=== PATIENT | male | born 1955 | race Caucasian/White ===

== ENCOUNTER 2016-12-22 07:43 | Day surgery (SDC) | payer BC ==
--- NOTE | ~2016-12-22 | EGD ---
EGD REPORT [facility] [address] [address] NAME: ADAIR THOMASON : 53 STATUS : REG [facility]#: [id number] AGE: 61 ADM/REG DATE : 12/22/16 MR#: [id number] REPORT SERV DATE: 12/22/16 DICTATED BY: ANA LUISA MCKENZIE DATE: 12/22/16 REPORT STATUS : Draft TRANS[facility]IBED BY: [facility] DATE: 12/22/16 Endoscopy Center Patient Name: Adair Thomason Date of : 1955 Attending MD: ANA LUISA MCKENZIE MD Procedure Date No Time: 12/22/2016 Procedure: Colonoscopy Indications: Colon cancer screening in patient at increased risk: Family history of colon polyps Referring MD: Jerri Anthony Medicines: Monitored Anesthesia Care Complications: No immediate complications. Procedure: Pre-Anesthesia Assessment: - ASA Grade Assessment: III - A patient with severe systemic disease. After I obtained informed consent, the scope was passed under direct vision. Throughout the procedure, the patient's blood pressure, pulse, and oxygen saturations were monitored continuously. The CF [id number] was introduced through the anus and advanced to the terminal ileum, with identification of the appendiceal orifice and IC valve. The colonoscopy was performed with moderate difficulty due to significant looping and a tortuous colon. Successful completion of the procedure was aided by applying abdominal pressure. The patient tolerated the procedure well. The quality of the bowel preparation was good. Findings: The digital rectal exam was normal. Pertinent negatives include no palpable rectal lesions. A sessile polyp was found in the ascending colon. The polyp was 7 mm in size. The polyp was removed with a cold biopsy forceps. Resection and retrieval were complete. A sessile polyp was found in the transverse colon. The polyp was 5 mm in size. The polyp was removed with a cold biopsy forceps. Resection and retrieval were complete. A sessile polyp was found in the descending colon. The polyp was 5 mm in size. The polyp was removed with a cold biopsy forceps. Resection and retrieval were complete. Hemorrhoids were found during retroflexion and were mild. The terminal ileum appeared normal. Impression: - One 7 mm polyp in the ascending colon. Resected and retrieved. EGD REPORT [address] [address] NAME: ADAIR THOMASON : [birth year] STATUS : REG [facility] [place] PAT#: [id number] AGE: 61 ADM/REG DATE : 12/22/16 MR#: [id number] REPORT SERV DATE: 12/22/16 DICTATED BY: ANA LUISA MCKENZIE DATE: 12/22/16 REPORT STATUS : Draft TRANSCRIBED BY: [employer] [facility] DATE: 12/22/16 - One 5 mm polyp in the transverse colon. Resected and retrieved. - One 5 mm polyp in the descending colon. Resected and retrieved. - Hemorrhoids. Recommendation: - Patient has a contact number available for emergencies. The signs and symptoms of potential delayed complications were discussed with the patient. Return to normal activities tomorrow. Written discharge instructions were provided to the patient. - Regular diet. - Continue present medications. - Repeat colonoscopy in 3 - 5 years for surveillance based on pathology results. - Return to GI clinic PRN. Procedure Code(s): --- Professional --- 84452, Colonoscopy, flexible, proximal to splenic flexure; with biopsy, single or multiple Diagnosis Code(s): --- Professional --- D12.4, Benign neoplasm of descending colon D12.3, Benign neoplasm of transverse colon D12.2, Benign neoplasm of ascending colon K64.9, Unspecified hemorrhoids Z12.11, Encounter for screening for malignant neoplasm of colon Z83.71, Family history of colonic polyps CPT copyright 2013 [employer]. All rights reserved. The codes documented in this report are preliminary and upon rn rehab review may be revised to meet current compliance requirements. ANA LUISA MCKENZIE MD 12/22/2016 9:50 AM This report has been signed electronically. Number of Addenda: 0 Note Initiated On: 12/22/2016 9:12 AM Scope Withdrawal Time 0 hours 17 minutes 56 seconds [id number] [place] [id number]
[~2016-12-22 07:43] MED LIST: ARICEPT5 PO; ASABAYER PO; COREG3 PO; COREG6 PO; DIAM250B PO; K-TABS10 MEQ PO; KLONO5 PO; L20 PO; MSIMMR15 PO; NEUR100 PO; PERCOCET 7.5/321 TAB PO; PERCOCET1 TA2 PO; PROZAC PO; TRAZ50 PO; ULTRAM50 PO; VITD PO; ZANAFLEX2 MG PO; ZOCOR20 PO; ZOCOR40 PO; ZONEGRAN PO; ZYRTEC ALLGY10 MG PO
== END 2016-12-22 23:59 | disposition home or self-care (01) ==
LOC: DMU 07:43
PROVIDERS: Internal Medicine Gastroenterology
PROC: 0DBM8ZX Excision of Descending Colon, Via Natural or Artificial Opening Endoscopic, Diagnostic (ICD-10-PCS; 2016-12-22)
PROC: 0DBL8ZX Excision of Transverse Colon, Via Natural or Artificial Opening Endoscopic, Diagnostic (ICD-10-PCS; 2016-12-22)
PROC: 0DBK8ZX Excision of Ascending Colon, Via Natural or Artificial Opening Endoscopic, Diagnostic (ICD-10-PCS; principal; 2016-12-22 10:00)
DX: Z12.11 Encounter for screening for malignant neoplasm of colon (principal); D12.2 Benign neoplasm of ascending colon; K63.5 Polyp of colon; K64.9 Unspecified hemorrhoids; Z83.71 Family history of colonic polyps; Z88.1 Allergy status to other antibiotic agents; Z79.82 Long term (current) use of aspirin; Z79.899 Other long term (current) drug therapy; Z79.891 Long term (current) use of opiate analgesic
CPT/HCPCS: 88305